=== PATIENT | male | born 2000 | race Asian ===

== ENCOUNTER 2021-08-03 19:10 | Emergency (ER) | payer OTHER ==
--- NOTE | 2021-08-03 19:24 | ED Physician Documentation ---
History of Present Illness - Stated complaint Stated Complaint: LT FOOT/ANKLE INJ - Chief complaint Chief Complaint: Trauma Ext - Additonal information Additional information: 21-year-old male presents emergency department for evaluation of acute left ankle injury. He was playing basketball and inverted the left ankle. Does have a history of multiple previous sprains though no fracture. Unable to bear weight since. Review of Systems Constitutional: denies: Fever, Chills Nose: reports: Reviewed and negative Throat: reports: Reviewed and negative Cardiac: reports: Reviewed and negative Respiratory: reports: Reviewed and negative Musculoskeletal: reports: Extremity pain (Left ankle) PD PAST MEDICAL HISTORY - Present Medications Home Medications: Ambulatory Orders Medication Instructions Recorded Confirmed Pantoprazole [Protonix] 40 mg PO DAILY #30 tablet 08/03/21 - Allergies Allergies/Adverse Reactions: Allergies Allergy/AdvReac Type Severity Reaction Status Date / Time No Known Drug Allergies Allergy Verified 08/03/21 19:36 PD ED PE EXPANDED - General General: Alert, No acute distress - Extremities Extremities: Left ankle (Swelling and ecchymosis left lateral malleolus. Most of the tenderness is just below the lateral malleolus. No medial or Achilles pain. Limited posterior flexion secondary to pain. Patient is able to make a full cocopah. No pain of the metatarsals or at the base of the fifth metatarsal.) Results - Vitals Vitals: Vital Signs - 24 hr 08/03/21 19:21 Temperature 36.6 C Heart Rate 81 Respiratory 18 Rate Blood Pressure 135/80 H O2 Saturation 98 Oxygen O2 Source Room air PD MEDICAL DECISION MAKING - ED course Complexity details: reviewed results, re-evaluated patient, considered differential, d/w patient ED course: 21-year-old female presents emergency department for evaluation of 3 days severe upper abdominal pain with some nausea but no vomiting. Denies melena or hematochezia. She does report a history of gastritis and takes omeprazole daily. Denies tobacco or alcohol use but does enjoy spicy foods. On exam her abdomen is quite tender especially in the upper epigastrium and periumbilical area. Screening labs showed no significant derangement or leukocytosis. CT of her abdomen did show a rather dilated and distended stomach with inflammation most consistent with acute gastritis. There were no findings of obstruction. These findings were discussed with the patient. She will be advised to do a clear liquid diet for 24 hours and we will transition her from omeprazole to Protonix. She is to follow-up with her primary care provider to obtain referral to a health education director for likely necessary EGD. Emergent return precautions were discussed for worsening symptoms fevers uncontrolled vomiting melena or hematochezia Departure - Departure Disposition: 01 Home, Self Care Clinical Impression: Gastritis Qualifiers: Gastritis type: unspecified gastritis Chronicity: acute Gastritis bleeding: without bleeding Qualified Code(s): K29.00 - Acute gastritis without bleeding Condition: Stable Record reviewed to determine appropriate education?: Yes Instructions: ED Gastritis Follow-Up: Provider,Other [Primary Care Provider] - Prescriptions: Pantoprazole [Protonix] 40 mg PO DAILY #30 tablet Comments: Vanda you are seen today in the emergency department for some fairly significant pain in your upper abdomen. While your screening labs were essentially normal with the CT Of your abdomen showed that your stomach is fairly distended as well as inflamed. This is a condition called gastritis. Over the next 24 hours I do recommend clear liquids then slowly advance your diet to include bananas, rice applesauce and toast. I would like you to stop taking the omeprazole and begin taking Protonix. [place] It is important you discuss this ED visit with your primary care doctor. You would benefit from referral to a health education director to have an EGD or endoscopy completed to determine the cause of your stomach inflammation. I do recommend that you avoid caffeine tobacco and spicy foods until your symptoms resolved. Return to the ER if you develop fevers, suddenly severe or different abdominal pain, uncontrolled vomiting, black or bloody stools.
[2021-08-03 19:25] VITALS: BP 135/80
--- NOTE | 2021-08-03 20:06 | XRAY Report ---
PROCEDURE: Ankle 3 View LT INDICATIONS: inversion injury TECHNIQUE: 3 views of the ankle were acquired. COMPARISON: None FINDINGS: Bones: No acute fractures or dislocations. Ankle mortise is normally aligned. No suspicious bony l esions. Soft tissues: No tibiotalar joint effusion. Achilles tendon appears normal. Moderate lateral malle olus soft tissue edema. IMPRESSION: Lateral malleolus soft tissue swelling without underlying fracture or dislocation. If there is persistent clinical concern for a radiographically occult fracture, recommend immobilizat ion and repeat imaging in 10 to 14 days. Reviewed by: Jersey Ernst MD on 08/03/2021 8:05 PM PDT Approved by: Jersey Ernst MD on 08/03/2021 8:05 PM PDT Station ID: [id number]
== END 2021-08-03 20:27 | disposition home or self-care (01) ==
LOC: ED 19:10
DX: S93.402A Sprain of unspecified ligament of left ankle, initial encounter (principal); X50.1XXA Overexertion from prolonged static or awkward postures, initial encounter; Y93.67 Activity, basketball
CPT/HCPCS: 99283